=== PATIENT | female | born 1955 | race African-American/Black ===

== ENCOUNTER 2024-01-22 04:41 | Day surgery (SDC) | payer OTHER ==
[2024-01-20 10:34] VITALS: BMI 34.7
[2024-01-22 12:58] VITALS: BP 119/51; PULSE 66; RESP 16; TEMP 98
== END 2024-01-22 11:30 | disposition home or self-care (01) ==
LOC: JASU-ENDO 04:41
PROVIDERS: ATTEND Internal Medicine Gastroenterology
PROC: 0DBN8ZX Excision of Sigmoid Colon, Via Natural or Artificial Opening Endoscopic, Diagnostic (ICD-10-PCS; principal; 2024-01-22 10:30)
DX: Z12.11 Encounter for screening for malignant neoplasm of colon (principal); D12.7 Benign neoplasm of rectosigmoid junction; K57.30 Diverticulosis of large intestine without perforation or abscess without bleeding; K64.8 Other hemorrhoids
CPT/HCPCS: 82962; 88305-TC